=== PATIENT | male | born 2000 | race Caucasian/White ===

== ENCOUNTER 2022-06-24 14:05 | Emergency (ER) | payer SELFPAY ==
--- OUTSIDE RECORDS SUMMARY | 2022-06-24 14:10 | XMS REPORT | Continuity of Care Document ---
:2000 Author Organization [facility] t Address [address] [place] [address] Care Team Providers Name Role Phone FOUND, PCP NOT Primary Care Physician Unavailable Brianna Wynn RN Attending Clinician Unavailable Rocael Villa MD Attending Clinician ADINA HEARN Attending Clinician Unavailable Doctor Unassigned, [facility] Attending Clinician Unavailable Adina Hearn MD Attending Clinician SHILPI PAREKH Attending Clinician Unavailable Shilpi Dumont Attending Clinician Michelle Toussaint RN Attending Clinician Unavailable Slava Carvajal RN Attending Clinician Unavailable ROCAEL VILLA Attending Clinician Unavailable GRIS GUTIERREZ Attending Clinician Unavailable Cande Porter MD Attending Clinician [phone], [facility] Attending Clinician Unavailable Corrina Delgado PA-C Attending Clinician Provider, [facility] Attending Clinician Unavailable Bradford Tavarez PA-C Attending Clinician BRADFORD TAVAREZ Attending Clinician Unavailable CANDE PORTER Attending Clinician Unavailable Pob[facility], Acute [facility] Attending Clinician Unavailable Kyle Vallejo Attending Clinician Kyra Huff Attending Clinician Payers Payer Name Policy Type Policy Number Effective Date Expiration Date Jazmín red [facility] [id number] 2020 GLOBAL 00:00:00 Problems Condition Condition Condition Status Onset Resolution Last Treating Co mments Source Name Details Category Date Date Treatment Clinician Date ADD ADD Disease Active Univers (attention (attention 2-11 it y of deficit deficit 00:00: [place] disorder) disorder) 00 Medi ezequiel without without Branch hyperactiv hyperactiv ity ity Mild Mild Disease Active Univers persistent persistent 2-11 it y of asthma asthma 00:00: [place] 00 Medical Branch Penile Problem Active [facility] Laceration Problem Active BRI TU of scalp S Health Allergies, Adverse Reactions, Alerts Allergy Allergy Status Severity Reaction(s) Onset Inactive Treating Comm ents Source Name Type Date Date Clinician amphetam DA Active U 2020-0 [facility] ine 5-28 [place] 00:00: [facility] 00 are [place] dextroam DA Active U 2019-0 [facility] phetamin 10-27 [place] e 00:00: [facility] 00 are [place] amphetam DA Active U SEIZURES 2019-0 [facility] ine 10-27 [place] 00:00: [facility] 00 are [place] dextroam DA Active U SEIZURES 2019-0 [facility] phetamin 10-27 [place] e 00:00: [facility]c 00 are [place] Dextroam Propensi Active Other - See seizures Univers phetamin ty to comments 8-13 ity of e-Amphet adverse 00:00: [place] amine reaction 00 Medical s Branch DEXTROAM DRUG Active Other-Cmnt Univ ers PHETAMIN 8-13 ity of E-AMPHET 00:00: [place] AMINE 00 Medical Branch Social History Social Habit Start Date Stop Date Quantity Comments Source History of tobacco Snuff User Univer sity of use [place] [facility] History [facility] o f Alcohol Frequency [place] M edical Branch History [facility] o f Alcohol Std Drinks [place] [facility] History [facility] o f Alcohol Binge [place] Medic al Branch Alcohol intake 2021-05-31 2021-05-31 0 /d University of 00:00:00 00:00:00 [facility] [place] Cigarettes smoked 2018-01-18 2018-01-18 Univers ity of current (pack per 00:00:00 00:00:00 ) - Reported Branch Cigarette 2018-01-18 2018-01-18 University of pack-years 00:00:00 00:00:00 [facility] [place] Tobacco use and 2018-01-18 2018-01-18 User of Universit y of exposure 00:00:00 00:00:00 smokeless [facility] [place] [facility] tobacco [place] Alcohol Comment 2017-06-10 2017-06-10 social Universit y of 00:00:00 00:00:00 [facility] [place] Sex Assigned At [birth year] Male [facility] 00:00:00 00:00:00 Smoking Status Start Date Stop Date Source Smokes tobacco daily 2018-01-18 00:00:00 Univers ity of [facility] [place] Medications Ordered Filled Start Stop Current Ordering Indication Dosage Frequency Signature Comments Components Source Medication Medication Date Date Medication? Clinician (SIG) Name Name albuterol 2021-06 Yes [id number] 2{puff} Inhale 2 Univers 90 2-11 Puffs ity of mcg/actuati 00:00: every 4 Tim as on inhaler 00 (four) Medical hours as Branch needed for Wheezing or Shortness of Breath. albuterol 2021-06 Yes [id number] 2{puff} Inhale 2 Univers 90 2-11 Puffs ity of mcg/actuati 00:00: every 4 Tim as on inhaler 00 (four) Medical hours as Branch needed for Wheezing or Shortness of Breath. ALBUTEROL 2021-06 Yes [id number] INHALE 2 Univers 90 0-31 PUFFS BY ity of mcg/actuati 00:00: MOUTH [place] on inhaler 00 EVERY 4 Medica l HOURS Branch NEEDED FOR WHEEZING OR SHORTNESS OF BREATH ALBUTEROL 2021-06- No [id number] INHALE 2 Univers 90 0-31 12-11 PUFFS BY ity of mcg/actuati 00:00: 00:00 MOUTH [place] inhaler 00 :00 EVERY 4 Medica l HOURS Branch NEEDED FOR WHEEZING OR SHORTNESS OF BREATH ALBUTEROL Yes [id number] INHALE 2 Univers 90 9-07 PUFFS ity of mcg/actuati 00:00: EVERY 4 Tim as on inhaler 00 HOURS Medic al NEEDED FOR Branch WHEEZING OR SHORTNESS OF BREATH ALBUTEROL 2021- No [id number] INHALE 2 Univers 90 9-07 10-31 PUFFS ity of mcg/actuati 00:00: 00:00 [place] 4 [place] inhaler 00 :00 HOURS Medic al NEEDED FOR Branch WHEEZING OR SHORTNESS OF BREATH albuterol Yes [id number] 2{puff} Inhale 2 Univers 90 8-12 Puffs ity of mcg/actuati 00:00: every 4 Tim as on inhaler 00 (four) Medical hours as Branch needed for Wheezing or Shortness of Breath. albuterol Yes [id number] 2{puff} Inhale 2 Univers 90 8-12 Puffs ity of mcg/actuati 00:00: every 4 Tim as on inhaler 00 (four) Medical hours as Branch needed for Wheezing or Shortness of Breath. albuterol 2021- No [id number] 2{puff} Inhale 2 Univers 90 8-12 09-07 Puffs ity of mcg/actuati 00:00: 00:00 every 4 [place] inhaler 00 :00 (four) Medical hours as Branch needed for Wheezing or Shortness of Breath. ALBUTEROL Yes [id number] INHALE 2 Univers 90 4-27 PUFFS ity of mcg/actuati 00:00: EVERY 4 Tim as on inhaler 00 HOURS Medic al NEEDED FOR Branch WHEEZE OR FOR SHORTNESS OF BREATH ALBUTEROL Yes [id number] INHALE 2 Univers 90 4-27 PUFFS ity of mcg/actuati 00:00: EVERY 4 Tim as on inhaler 00 HOURS Medic al NEEDED FOR Branch WHEEZE OR FOR SHORTNESS OF BREATH ALBUTEROL 2021- No [id number] INHALE 2 Univers 90 4-27 08-12 PUFFS ity of mcg/actuati 00:00: 00:00 EVERY 4 [place] inhaler 00 :00 HOURS Medic al NEEDED FOR Branch WHEEZE OR FOR SHORTNESS OF BREATH CITALOPRAM Yes [id number] TAKE 1 U nivers 20 mg 2-24 TABLET BY ity of tablet 00:00: [facility] EVERY DAY Medical Branch CITALOPRAM 2021-0 Yes [id number] TAKE 1 U nivers 20 mg 2-24 TABLET BY ity of tablet 00:00: [facility] EVERY DAY Medical Branch CITALOPRAM 2021-0 Yes [id number] TAKE 1 U nivers 20 mg 2-24 TABLET BY ity of tablet 00:00: [facility] EVERY DAY Medical Branch CITALOPRAM 2021-0 Yes [id number] TAKE 1 U nivers 20 mg 2-24 TABLET BY ity of tablet 00:00: [facility] EVERY DAY Medical Branch CITALOPRAM 2021-0 Yes [id number] TAKE 1 U nivers 20 mg 2-24 TABLET BY ity of tablet 00:00: [facility] EVERY DAY Medical Branch CITALOPRAM 2021-0 Yes [id number] TAKE 1 U nivers 20 mg 2-24 TABLET BY ity of tablet 00:00: [facility] EVERY DAY Medical Branch CITALOPRAM 2021-0 Yes [id number] TAKE 1 U nivers 20 mg 2-24 TABLET BY ity of tablet 00:00: [facility] EVERY DAY Medical Branch CITALOPRAM 2021-0 Yes [id number] TAKE 1 U nivers 20 mg 2-24 TABLET BY ity of tablet 00:00: [facility] EVERY DAY Medical Branch CITALOPRAM 2021-0 Yes [id number] TAKE 1 U nivers 20 mg 2-24 TABLET BY ity of tablet 00:00: [facility] EVERY DAY Medical Branch albuterol 2020-06 Yes [id number] 2{puff} Inhale 2 Univers 90 2-30 Puffs ity of mcg/actuati 00:00: every 4 Tim as on inhaler 00 (four) Medical hours as Branch needed for Wheezing or Shortness of Breath. albuterol 2020-06- No [id number] 2{puff} Inhale 2 Univers 90 2-30 04-27 Puffs ity of mcg/actuati 00:00: 00:00 [place] 4 [place] inhaler 00 :00 (four) Medical hours as Branch needed for Wheezing or Shortness of Breath. amoxicillin 2019-0 Yes [id number] 1{tbl} Take 1 Univers -clavulanat 7-08 tablet by ity of e 00:00: mouth 2 [place] (AUGMENTIN) 00 (two) Medical 875-125 mg times Branch per tablet daily. amoxicillin 2020-0 Yes [id number] 1{tbl} Take 1 Univers -clavulanat 7-08 tablet by ity of e 00:00: mouth 2 [place] (AUGMENTIN) 00 (two) Medical 875-125 mg times Branch per tablet daily. amoxicillin 2020-0 Yes [id number] 1{tbl} Take 1 Univers -clavulanat 7-08 tablet by ity of e 00:00: mouth 2 [place] (AUGMENTIN) 00 (two) Medical 875-125 mg times Branch per tablet daily. amoxicillin 2020-0 Yes [id number] 1{tbl} Take 1 Univers -clavulanat 7-08 tablet by ity of e 00:00: mouth 2 [place] (AUGMENTIN) 00 (two) Medical 875-125 mg times Branch per tablet daily. amoxicillin 2020-0 Yes [id number] 1{tbl} Take 1 Univers -clavulanat 7-08 tablet by ity of e 00:00: mouth 2 [place] (AUGMENTIN) 00 (two) Medical 875-125 mg times Branch per tablet daily. amoxicillin 2020-0 Yes [id number] 1{tbl} Take 1 Univers -clavulanat 7-08 tablet by ity of e 00:00: mouth 2 [place] (AUGMENTIN) 00 (two) Medical 875-125 mg times Branch per tablet daily. amoxicillin 2020-0 Yes [id number] 1{tbl} Take 1 Univers -clavulanat 7-08 tablet by ity of e 00:00: mouth 2 [place] (AUGMENTIN) 00 (two) Medical 875-125 mg times Branch per tablet daily. amoxicillin 2020-0 Yes [id number] 1{tbl} Take 1 Univers -clavulanat 7-08 tablet by ity of e 00:00: mouth 2 [place] (AUGMENTIN) 00 (two) Medical 875-125 mg times Branch per tablet daily. amoxicillin 2020-0 Yes [id number] 1{tbl} Take 1 Univers -clavulanat 7-08 tablet by ity of e 00:00: mouth 2 [place] (AUGMENTIN) 00 (two) Medical 875-125 mg times Branch per tablet daily. Fluticasone 2020-0 Yes [id number] 1{puff} Inhale 1 Univers -Salmeterol 6-25 Puff every it y of (ADVAIR 00:00: 12 [place] DISKUS) 00 (twelve) Medical 100-50 hours. Branch mcg/dose inhalation disk Fluticasone 2020-0 Yes [id number] 1{puff} Inhale 1 Univers -Salmeterol 6-25 Puff every it y of (ADVAIR 00:00: 12 [place] DISKUS) 00 (twelve) Medical 100-50 hours. Branch mcg/dose inhalation disk Fluticasone 2020-0 Yes [id number] 1{puff} Inhale 1 Univers -Salmeterol 6-25 Puff every it y of (ADVAIR 00:00: 12 [place] DISKUS) 00 (twelve) Medical 100-50 hours. Branch mcg/dose inhalation disk Fluticasone 2020-0 Yes [id number] 1{puff} Inhale 1 Univers -Salmeterol 6-25 Puff every it y of (ADVAIR 00:00: 12 [place] DISKUS) 00 (twelve) Medical 100-50 hours. Branch mcg/dose inhalation disk Fluticasone 2020-0 Yes [id number] 1{puff} Inhale 1 Univers -Salmeterol 6-25 Puff every it y of (ADVAIR 00:00: 12 [place] DISKUS) 00 (twelve) Medical 100-50 hours. Branch mcg/dose inhalation disk Fluticasone 2020-0 Yes [id number] 1{puff} Inhale 1 Univers -Salmeterol 6-25 Puff every it y of (ADVAIR 00:00: 12 [place] DISKUS) 00 (twelve) Medical 100-50 hours. Branch mcg/dose inhalation disk Fluticasone 2020-0 Yes [id number] 1{puff} Inhale 1 Univers -Salmeterol 6-25 Puff every it y of (ADVAIR 00:00: 12 [place] DISKUS) 00 (twelve) Medical 100-50 hours. Branch mcg/dose inhalation disk Fluticasone 2020-0 Yes [id number] 1{puff} Inhale 1 Univers -Salmeterol 6-25 Puff every it y of (ADVAIR 00:00: 12 [place] DISKUS) 00 (twelve) Medical 100-50 hours. Branch mcg/dose inhalation disk Fluticasone 2020-0 Yes [id number] 1{puff} Inhale 1 Univers -Salmeterol 6-25 Puff every it y of (ADVAIR 00:00: 12 [place] DISK) 00 (twelve) Medical 100-50 hours. Branch mcg/dose inhalation disk Immunizations Ordered Immunization Filled Immunization Date Status Commen ts Source Name Name Tetanus/Diphtheria 2020-03-15 Completed [facility] Toxoids (Adult)/PF 00:00:00 Tetanus/Diphtheria 2020-03-15 Completed [facility] Toxoids (Adult)/PF 00:00:00 Critical access hospital Vital Signs Vital Name Observation Time Observation Value Comments Source Body Temperature 2020-03-15 21:59:00 98.8 [degF] [facility] [employer] Heart Rate 2020-03-15 21:59:00 89 /min [facility] Respiratory rate 2020-03-15 21:59:00 18 /min [facility] [employer] BP Systolic 2020-03-15 21:59:00 130 mm[Hg] [facility] [employer] BP Diastolic 2020-03-15 21:59:00 81 mm[Hg] [facility] Heart Rate 2020-03-15 18:52:00 109 /min [facility] Respiratory rate 2020-03-15 18:52:00 20 /min [facility] BP Systolic 2020-03-15 18:52:00 137 mm[Hg] [facility] BP Diastolic 2020-03-15 18:52:00 77 mm[Hg] [facility] Weight 2020-03-15 18:52:00 270 [lb_av] [facility] BMI (Body Mass Index) 2020-03-15 18:52:00 33.7 kg/m2 [facility] Procedures Procedure Date / Time Performed Performing Clinician [facility] e EXTERNAL PROVIDER 2021-10-09 05:01:00 Doctor Unassigned, No Univ [facility] RECORDS Name Medical Branch Plan of Care Planned Activity Planned Date Details Comments Source Goal Patient referral [code BRI ROSENT[address] St. Sanchezrick = [id number] ] Hospital Instructions Sexually-Transmitted [facility] Jd Diseases (DC) Hospital Encounters Start End Encounter Admission Attending Care Care Encounter Source Date/Time Date/Time Type Type Clinicians Facility Department ID 2019-10-28 Inpatient HCANC TERS [id number] [facility] 14:07:00 19 [facility] are [place] 2022-05-12 2022-05-12 BRADFORD Montanez [id number] Univers 00:00:00 00:00:00 Triage Brianna MCCANN [id number] it y of HOSPITAL 4.2.7.2.686 Tim as [phone] [address] 2022-05-12 2022-05-12 [facility] 1.2.840.114 [id number] Univers 00:00:00 00:00:00 Rocael HEALTH 350.1.13.10 it y of [place] 4.2.7.2.686 Tim as JASS?BLEA [id number] [address] MEDICAL OFFICE [facility] 2022-04-01 2022-04-01 [facility] 1.2.840.114 [id number] Univers 00:00:00 00:00:00 Rocael HEALTH 350.1.13.10 it y of [place] 4.2.7.2.686 Tim as JASS?BLEA [phone] [address] OFFICE [facility] 2022-03-18 2022-03-18 [facility] [id number] Univers 15:00:00 15:00:00 ADINA flores [facility] 2022-02-05 2022-02-05 [facility] 1.2.840.114 [id number] Univers 00:00:00 00:00:00 Rocael HEALTH 350.1.13.10 it y of [place] 4.2.7.2.686 Tim as JASS?BLEA [phone] [address] OFFICE [facility] 2022-01-21 2022-01-21 Out[facility] [id number] Univers 15:45:00 15:45:00 ADINA flores [facility] 2022-01-11 2022-01-11 Erlinda [facility] [id number] Univers 00:00:00 00:00:00 Rocael HEALTH 350.1.13.10 it y [facility] 4.2.7.2.686 Tim as JASS?BLEA [phone] [address] OFFICE [facility] 2022-01-11 2022-01-11 BRADFORD Cowan 1.2.840.114 [id number] Univers 00:00:00 00:00:00 Rocael MCCANN 350.1.13.10 it y of HOSPITAL 4.2.7.2.686 Tim as [id number] [address] 2021-11-07 2021-11-07 Outpatient R [facility] [id number] Univers 15:00:00 15:00:00 ity of [facility] [place] 2021-10-09 2021-10-09 Orders Doctor BRADFORD 1.2.840.114 [id number] Univers 00:00:00 00:00:00 Only Unassigned, RAMY 350.1.13.10 ity of [facility] 4.2.7.2.686 Tim as [phone] [address] 2021-09-26 2021-09-26 BRADFORD Cowan 1.2.840.114 [id number] Univers 00:00:00 00:00:00 Rocael MCCANN 350.1.13.10 it y of [facility] 4.2.7.2.686 Tim as [id number] [address] 2021-09-06 2021-09-06 Erlinda [facility] [id number] Univers 00:00:00 00:00:00 Rocael HEALTH 350.1.13.10 it y of [facility] 4.2.7.2.686 Tim as JASS?BLEA [id number] [address] MEDICAL OFFICE [facility] 2021-09-06 2021-09-06 Cassia [facility] 1.2.840.114 [id number] Univers 00:00:00 00:00:00 (Out) Rocael HEALTH 350.1.13.10 it y of [place] 4.2.7.2.686 Tim as JASS?BLEA [phone] [address] MEDICAL OFFICE [facility] 2021-08-01 2021-08-01 Outpatient R NADIYA [facility] [id number] Univers 16:30:00 16:30:00 DAINA ity of [facility] [place] 2021-07-03 2021-07-03 Office [facility] 1.2.840.114 [id number] Univers 15:45:00 16:10:46 Visit [facility] 350.1.13.10 it y of Luis E JO 4.2.7.2.686 Tmi as JASS?BLEA [phone] [address] OFFICE [facility] 2021-07-03 2021-07-03 Outpatient R NADIYA [facility] [id number] Univers 15:45:00 15:45:00 ADINA [facility] 2021-07-03 2021-07-03 Cassia [facility] 1.2.840.114 [id number] Univers 00:00:00 00:00:00 (Out) [facility] 350.1.13.10 it y of [place] 4.2.7.2.686 Tim as JASS?BLEA [phone] [address] OFFICE [facility] 2021-05-31 2021-05-31 [facility] [id number] Univers 16:00:00 16:50:59 SHILPI andre [facility] 2021-05-31 2021-05-31 Office [facility] 1.2.840.114 [id number] Univers 16:00:00 16:50:59 Visit [facility] 350.1.13.10 it y of [facility] 4.2.7.2.686 Tim as JASS?BLEA [phone] [address] OFFICE [facility] 2021-05-31 2021-05-31 [facility] [id number] Univers 16:00:00 16:50:59 SHILPI flores [facility] 2021-04-29 2021-04-29 Nurse BRADFORD Toussaint 1.2.840.114 [id number] Univers 00:00:00 00:00:00 Triage Michelle MCCANN 350.1.13.10 ity of [facility] 4.2.7.2.686 Tim as [id number] [address] 2021-04-29 2021-04-29 BRADFORD Cowan 1.2.840.114 [id number] Univers 00:00:00 00:00:00 Rocael MCCANN 350.1.13.10 it y of HOSPITAL 4.2.7.2.686 Tim as [phone] [address] 2021-03-02 2021-03-02 Telephone [facility] [id number] Univers 00:00:00 00:00:00 Rocael Health 350.1.13.10 it y of [place] 4.2.7.2.686 Tim as Jass?Blea [id number] [address] Medical Office Building 2021-02-23 2021-02-23 Nurse BRADFORD Carvajal [id number] Univers 00:00:00 00:00:00 Triage Slava MCCANN 350.1.13.10 it y of HOSPITAL 4.2.7.2.686 Tim as [id number] [address] 2021-02-23 2021-02-23 Refill [facility] 1.2.840.114 [id number] Univers 00:00:00 00:00:00 Rocael Health 350.1.13.10 it y of [place] 4.2.7.2.686 Tim as Professio [phone] [address] Office Building One 2021-01-25 2021-01-25 Office [facility] 1.2.840.114 [id number] Univers 14:12:02 14:27:02 Visit Rocael Health 350.1.13.10 it y of [place] 4.2.7.2.686 Tim as Jass?Blea [phone] [address] Office Building 2021-01-25 2021-01-25 Outpatient R DAISY [facility] [id number] Univers 13:45:00 13:45:00 ROCAEL itandre of [facility] [place] 2021-01-25 2021-01-25 Letter [facility] 1.2.840.114 [id number] Univers 00:00:00 00:00:00 (Out) Rocael Health 350.1.13.10 it y of [place] 4.2.7.2.686 Tim as Jass?Blea [phone] [facility] jeni [address] [place] [address] Office [facility] 2021-01-04 2021-01-04 Refvladimir [facility] 1.2.840.114 [id number] Univers 00:00:00 00:00:00 [facility] 350.1.13.10 it y of [place] 4.2.7.2.686 Tim as Professio [phone] [address] Office [facility] One 2020-12-04 2020-12-04 Outpatient R DAISY [facility] [id number] Univers 15:00:00 15:00:00 ROCAEL flores [facility] 2020-12-04 2020-12-04 Office [facility] 1.2.840.114 [id number] Univers 14:34:34 14:49:34 Visit [facility] 350.1.13.10 it y of [place] 4.2.7.2.686 Tim as Professio [id number] [address] Office [facility] One 2020-12-04 2020-12-04 Orders Doctor BRADFORD 1.2.840.114 [id number] Univers 00:00:00 00:00:00 Only Unassigned, RAMY 350.1.13.10 ity of [facility] 4.2.7.2.686 Tim as [phone] [address] 2020-11-09 2020-11-09 Refvladimir [facility] 1.2.840.114 [id number] Univers 00:00:00 00:00:00 [facility] 350.1.13.10 it y of [place] 4.2.7.2.686 Tim as Professio [phone] [address] Office [facility] One 2020-10-04 2020-10-04 Outpatient R BRENDA [facility] [id number] Univers 16:20:00 16:20:00 GRIS flores o f [facility] [place] 2020-09-04 2020-09-04 Refvladimir [facility] 1.2.840.114 [id number] Univers 00:00:00 00:00:00 [facility] 350.1.13.10 it y of [place] 4.2.7.2.686 Tim as Professio [phone] [facility] 044 [facility] One 2020-07-26 2020-07-26 Refill Daisy [facility] 1.2.840.114 [id number] Univers 00:00:00 00:00:00 Rocael Health 350.1.13.10 it y of [place] 4.2.7.2.686 Tim as Professio [phone] [address] One 2020-04-14 2020-04-14 Refill [facility] 1.2.840.114 [id number] Univers 00:00:00 00:00:00 Cande Jo 350.1.13.10 ity of [place] 4.2.7.2.686 [place] Profess[place] [phone] [facility] 231 [facility] 2020-03-15 2020-03-15 Registered [facility] [id number] [facility] 18:15:00 18:15:[address] [place] [address] 2020-03-15 2020-03-15 Registered [facility] [id number] [id number] [facility] 18:15:00 18:15:00 Emergency [facility] [address] 2019-12-10 2019-12-10 [facility] [id number] Univers 00:00:00 00:00:00 [facility] 350.1.13.10 it y of [place] 4.2.7.2.686 Tim as Professio [phone] [facility] 044 [facility] One 2019-12-10 2019-12-10 Telephone [facility] [id number] 00:00:00 00:00:00 Rocael Health 350.1.13.10 [place] 4.2.7.2.686 Professio [phone] [place] [address] Office [facility] One 2019-12-09 2019-12-09 Tele[facility] [id number] Univers 00:00:00 00:00:00 Rocael Health 350.1.13.10 it y of [place] 4.2.7.2.686 Tim as Professio [phone] [address] 2019-12-09 2019-12-09 Telephone Daisy [facility] [id number] 00:00:00 00:00:00 Rocael Health 350.1.13.10 [place] 4.2.7.2.686 Professio [phone] [address] 2019-12-08 2019-12-08 [place] 2, Adc Lab [facility] 1.2.840.114 [id number] Univers 10:30:21 10:45:21 Visit Rocael Villa 350.1.13.10 ity of [place].2.7.2.686 [place] Profess[place] [phone] Nm dic[address] 2019-12-08 2019-12-08 [place] 2, Adc Lab [facility] 1.2.840.114 [id number] 10:30:21 10:45:21 Visit Deysi 350.1.13.10 [place] 4.2.7.2.686 Professio [phone] [address] 2019-12-08 2019-12-08 Office [facility] 1.2.840.114 [id number] Univers 10:00:24 10:15:24 Visit Rocael Jo 350.1.13.10 i ty of [place] 4.2.7.2.686 [place] Profess[place] [phone] [address] 2019-12-08 2019-12-08 Office [facility] 1.2.840.114 [id number] 10:00:24 10:15:24 Visit Rocael Jo 350.1.13.10 [place] 4.2.7.2.686 Professio [phone] [address] 2019-12-08 2019-12-08 Outpatient R VILLA [facility] [id number] Univers 10:00:00 10:00:00 ROCAEL flores of [facility] 2019-12-01 2019-12-01 [facility] Corrina Delgado [facility] [id number] Univers 15:30:00 23:59:00 Encounter Chelsea Jo [id number] [id number] [phone] [facility] [address] 2019-12-01 2019-12-01 Urgent Provider, [facility] 1.2.840.114 [id number] Univers 14:09:14 14:29:14 Care Bradford Tavarez [id number] ity of [place] [id number] Tim as Professio [phone] Nm dical [facility] [address] Office [facility] 2019-12-01 2019-12-01 Outpatient R [facility] [id number] Univers 14:20:00 14:20:00 [place] ity of [facility] 2019-12-01 2019-12-01 Telephone Corrina Delgado [facility] [id number] Univers 00:00:00 00:00:00 [facility] [id number] it y of [place] [id number] Tim as Professio [phone] [facility] [address] Office [facility] 2019-11-25 2019-11-25 Office [place] [facility] [id number] Univers 09:39:44 10:40:07 Visit Cande Jo [id number] [id number] [facility] [phone] Nm dical [facility] 231 [facility] 2019-11-25 2019-11-25 Outpatient [facility] [id number] Univers 09:45:00 09:45:00 ity of [facility] 2019-11-25 2019-11-25 Outpatient R [facility] [id number] Univers 09:20:00 09:20:00 CANDE kimy of [facility] 2019-11-25 2019-11-25 Orders Doctor BRADFORD 1.2.840.114 [id number] Univers 00:00:00 00:00:00 Only Unassigned, RAMY [id number] ity of [facility] [id number] Tim as [phone] [facility] [address] 2019-08-27 2019-08-27 Telephone Pob1, Acute [facility] 1.2.840.114 [id number] Univers 00:00:00 00:00:00 [facility] [id number] ity of [place] [id number] Tim as Professio [phone] [address] Office [facility] One 2019-01-31 2019-01-31 Emergency [facility] [id number] Univers 16:32:56 18:04:00 Kyle A [place] [id number] i [place]2.7.2.686 [place] [facility] [phone] [facility] [address] 2019-01-31 2019-01-31 [facility] 1.2.840.114 [id number] Univers 00:00:00 00:00:00 [facility] [id number] i ty of [place] [id number] Tim as Professio [phone] [address] One 2019-01-29 2019-01-29 [facility]imir [facility] 1.2.840.114 [id number] Univers 00:00:00 00:00:00 [facility] [id number] it y of [place] [id number] Tim as Professio [phone] [address] One Results Test Description Test Time Test Comments Results Result Comments Source TROPONIN I RAPID 2019-10-28 14:53:00 Test Item Value Reference Range Interpretation Comme nts TROPONIN I RAPID (test code = TROPIRAP) < 0.05 ng/mL 0.00-0.05 N - XR CHEST 1 [id number] 14:50:00Patient Name: MICK MERAZ Unit No: [id number] EXAMS: CPT CODE: [id number] XR CHEST 1 V [id number] CHEST, SINGLE VIEW DICTATION LOCATION A1 HISTORY: Chest pain. A single view of the chest was obtained at 2:31 PM. No prior exams are available for comparison. FINDINGS: The lungs are clear of acute infiltrate or mass. The heart and pulmonary vasculature are within normal limits. No pleural effusion is present. No free air is identified under the diaphragm. No acute skeletal abnormality is seen. IMPRESS ION: No acute thoracic abnormality. at 1450 Reported and signed by: Jack Paulino Jr, MD CC: Adina Benitez MD Technologist: Negro Pak Trscr Dt/Tm: 10/28/2019 (148) by:Rayo Electronic Signature Date/Time: 10/28/2019 (4860)Orig Print D/T: S: 10/28/2019 (1816) Name: MICK MERAZ [facility] FS Phys: Adina Stratton MD [address] : 2000 Age: 19 Sex: [place] [address] Loc: [facility] Exam Date: 10/28/2019 Status: REG ER PH: FAX: PAGE 1 Signed ReportCBC W/AUTO [id number] 14:45:00 Test Item Value Reference Range Interpretation Comments WHITE BLOOD CELL (test code = WBC) 7.6 K/mm3 4.5-11.0 N RED BLOOD CELL (test code = RBC) 5.88 M/mm3 4.30-5.50 H HEMOGLOBIN (test code = HGB) 17.8 g/dL 14.0-18.0 N HEMATOCRIT (test code = HCT) 52.6 % 42.0-52.0 H MEAN CELL VOLUME (test code = MCV) 89 fL 78-100 N MEAN CELL HGB (test code = MCH) 30.2 pg 26.0-34.0 N MEAN CELL HGB CONCENTRATION (test 33.8 % 31.0-37.0 N code = MCHC) RED CELL DISTRIBUTION WIDTH (test 13.0 % 11.5-14.5 N code = RDW) PLATELET COUNT (test code = PLT) 265 K/mm3 150-400 N GRANULOCYTE % (test code = GR%) 77 % 49-77 N LYMPHOCYTE % (test code = LY%) 21.7 % 14.0-54.0 N MONOCYTE % (test code = MO%) 1.6 % 0.0-12.0 N GRANULOCYTE # (test code = GR#) 5.8 K/mm3 1.5-7.0 N LYMPHOCYTE # (test code = LY#) 1.6 K/mm3 1.5-4.0 N MONOCYTE # (test code = MO#) 0.1 K/mm3 0.2-0.9 L COMPREHENSIVE METABOLIC [id number] 14:42:00 Test Item Value Reference Range Interpretation Comments SODIUM (test code = 143 mmol/L 128-145 N NA) POTASSIUM (test 3.9 mmol/L 3.6-5.1 N code = K) CHLORIDE (test code 105 mmol/L 98-108 N = CL) CARBON DIOXIDE 28 mmol/L 18-33 N (test code = CO2) ANION GAP (test 13.9 2.0-16.0 N code = GAP) GLUCOSE (test code 88 mg/dL 65-99 N = GLU) BLOOD UREA NITROGEN 14 mg/dL 7-22 N (test code = BUN) GLOMERULAR >=60 max 60-115 N The estimated FILTRATION RATE estimate ml/min glomerula r (test code = GFR) filtration rate is computed usingpatient ra ce, age (>18), sex, and serum creatinin e. If anyof the ne eded data elements a re missing the Laboratory [facility] ot compute an estimation of t he glomerular filtration rate . CREATININE (test 1.3 mg/dL 0.6-1.2 H code = CREAT) BUN/CREATININE 10.8 12.0-20.0 L RATIO (test code = BUN/CREA) TOTAL PROTEIN (test 7.8 6.4-8.1 N code = PROT) ALBUMIN (test code 4.7 g/dL 3.3-5.5 N = ALB) CALCIUM (test code 9.9 mg/dL 8.0-10.3 N = CA) BILIRUBIN TOTAL 1.2 mg/dL 0.2-1.6 N (test code = BILT) SGOT/AST (test code 31 U/L 11-38 N = AST) SGPT/ALT (test code 27 U/L 10-47 N = ALT) ALKALINE 57 U/L 42-141 N PHOSPHATASE (test code = ALKP)
--- NOTE | 2022-06-24 15:56 | EDPHYS ---
Physician Documentation [facility] Name: Cassi Padilla Age: 22 yrs Sex: Male : 2000 Arrival Date: 06/24/2022 Time: 14:07 Bed 10 Private MD: ED Physician Miles Gonzalez HPI: 06/24 15:59 This 22 yrs old Male presents to ER via Unassigned with complaints of blood draw. jr8 15:59 Associated signs and symptoms: The patient has no apparent associated signs or jr8 symptoms. The patient has not experienced similar symptoms in the past. The patient has not recently seen a physician. 22-year-old male patient that presented to the emergency room for concerns for a possible HSV exposure. Significant other had first outbreak and was diagnosed recently. Denies any recent outbreak but was concerned and wanted a blood draw. Currently uninsured.. ROS: 15:59 Eyes: Negative for injury, pain, redness, and discharge, ENT: Negative for injury, jr8 pain, and discharge, Neck: Negative for injury, pain, and swelling, Cardiovascular: Negative for chest pain, palpitations, and edema, Respiratory: Negative for shortness of breath, cough, wheezing, and pleuritic chest pain, Abdomen/GI: Negative for abdominal pain, nausea, vomiting, diarrhea, and constipation, Back: Negative for injury and pain, MS/Extremity: Negative for injury and deformity, Skin: Negative for injury, rash, and discoloration, Neuro: Negative for headache, weakness, numbness, tingling, and seizure. Exam: 15:59 Constitutional: This is a well developed, well nourished patient who is awake, alert, jr8 and in no acute distress. Cardiovascular: Regular rate and rhythm with a normal S1 and S2. No gallops, murmurs, or rubs. Normal PMI, no JVD. No pulse deficits. Respiratory: Lungs have equal breath sounds bilaterally, clear to auscultation and percussion. No rales, rhonchi or wheezes noted. No increased work of breathing, no retractions or nasal flaring. Abdomen/GI: Soft, non-tender, with normal bowel sounds. No distension or tympany. No guarding or rebound. No evidence of tenderness throughout. Skin: Warm, dry with normal turgor. Normal color with no rashes, no lesions, and no evidence of cellulitis. MS/ Extremity: Pulses equal, no cyanosis. Neurovascular intact. Full, normal range of motion. Neuro: Awake and alert, GCS 15, oriented to person, place, time, and situation. Motor strength 5/5 in all extremities. Sensory grossly intact. MDM: 14:33 Patient medically screened. jr8 15:54 Data reviewed: vital signs, nurses notes, lab test result(s), and as a result, I will jr8 discharge patient. Care significantly affected by the following Social Determinants of Health: Poor access to healthcare and/or lack of insurance. Counseling: I had a detailed discussion with the patient and/or guardian regarding: the historical points, exam findings, and any diagnostic results supporting the discharge/admit diagnosis, lab results, the need for outpatient follow up, a family practitioner, to return to the emergency department if symptoms worsen or persist or if there are any questions or concerns that arise at home. 06/24 14:57 Order name: LAB [facility]. Test jr8 Administered Medications: No medications were administered Disposition: 19:20 Co-signature as Attending Physician, Miles Gonzalez DO I was immediately available on-site ms3 in the Emergency Department for consultation in the care of the patient. Disposition Summary: 06/24/22 15:55 Discharge Ordered Location: Home jr8 Problem: new jr8 Symptoms: have improved jr8 Condition: Stable jr8 Diagnosis - Encounter for general adult medical examination without abnormal findings jr8 Followup: jr8 - With: Private Physician - When: 1 week - Reason: Recheck today's complaints, Continuance of care, Re-evaluation by your physician Discharge Instructions: - Genital Herpes jr8 - Discharge Summary Sheet rs5 Forms: - Medication Reconciliation Form jr8 - Thank You Letter jr8 - Antibiotic Education jr8 - Prescription Opioid Use jr8 - Work release form rs5 - Family Work Release rs5 Signatures: Dispatcher [employer] EDJalen Griffin PA PA jr8 Sims, Marcus, DO DO ms3
--- NOTE | 2022-06-24 15:56 | ER ---
Nurse's Notes [facility] Name: Cassi Padilla Age: 22 yrs Sex: Male : 2000 Arrival Date: 06/24/2022 Time: 14:07 Bed 10 Private MD: Diagnosis: Encounter for general adult medical examination without abnormal findings Presentation: 06/24 15:25 Acuity: REG 4 iw ED Course: 14:07 Patient arrived in ED. rg4 14:18 Jalen Ramírez PA is PHCP. jr8 14:18 Miles Gonzalez DO is Attending Physician. jr8 15:00 Nelida Fry RN is Primary Nurse. iw 15:25 Triage completed. iw Administered Medications: No medications were administered Outcome: 15:55 Discharge ordered by MD. jr8 15:58 Patient left the ED. iw Signatures: Nelida Fry RN RN iw Jalen Ramírez PA PA jr8 Sofya Levine rg4
== END 2022-06-24 15:58 | disposition home or self-care (01) ==
LOC: ER 14:05
DX: Z11.3 Encounter for screening for infections with a predominantly sexual mode of transmission (principal)
CPT/HCPCS: 99281